=== PATIENT | female | born 1960 | race African-American/Black ===

== ENCOUNTER → 2017-12-13 | Outpatient (CLI) | payer OTHER ==
[~2017-12-13] MED LIST: ACETAMINOPHEN-1 EAC1 PO; ACETAMINOPHEN325 M1 PO; AMBIEN 5 MG TABL5 M1 PO; ARIXTRA INJECTION; ASPIR 8181 MG PO; ASPIRIN325 PO; ATORVASTATIN CA40 MG PO; AZITHROMYCIN 2250 MG PO; CELEBREX 200 M200 M1 PO; CLEOCIN HCL150 MG PO; COLACE100 MG PO; CYMBALTA60 MG PO; ETODOLAC 400 M400 M1 PO; HYDROCODON-ACE1 EAC7 PO; HYDROCODONE-APA1 TA1 PO; IRON325 PO; METAMUCIL1 EAC1; NAPROSYN500 MG PO; NEURONTIN 300300 M1 PO; NORCO 5-325 TA1 EACH PO; PERCOCET 5-3251 EACH PO; PRILOSEC 20 MG20 MG PO; PROMETHAZINE V473 ML PO; ROXICODONE5 M1 PO; TESSALON PERLE100 MG PO; TRAMADOL 50 MG50 MG PO; ZOLOFT50 MG PO; ZPAK PO
== END ==
LOC: M.NUC 12-09 12:47 → M.ULTRA 10:32 → M.NUC 11:15 → M.ULTRA 11:15
DX: N63.20 Unspecified lump in the left breast, unspecified quadrant (principal)